=== PATIENT | male | born 1980 | race African-American/Black ===

== ENCOUNTER 2018-01-08 16:43 | Emergency (ER) | payer SELFPAY ==
[~2018-01-08] VITALS: Ht 170.2 cm; Wt 65.8 kg
[2018-01-08 18:43] VITALS: BP 146/81
[2018-01-08] MEDS ORDERED: TETRACAINE HCL 0.5% OPTH(EYE) SOLN 4ML LEFTEYE ONE (18:45)
[2018-01-08] MEDS ORDERED: FLUORESCEIN SOD 1 MG TEST STRIP EACHEYE ONE (18:45)
== END 2018-01-08 19:45 | disposition home or self-care (01) ==
LOC: ER 16:50
DX: S05.02XA Injury of conjunctiva and corneal abrasion without foreign body, left eye, initial encounter (principal); F17.210 Nicotine dependence, cigarettes, uncomplicated; F12.10 Cannabis abuse, uncomplicated; Z88.6 Allergy status to analgesic agent; X58.XXXA Exposure to other specified factors, initial encounter; Y93.89 Activity, other specified; Y99.8 Other external cause status; Y92.89 Other specified places as the place of occurrence of the external cause

== ENCOUNTER 2018-10-06 11:57 | Emergency (ER) | payer MEDICAID ==
[~2018-10-06] VITALS: Ht 170.2 cm; Wt 65.8 kg
[2018-10-06 12:00] VITALS: BP 132/65
[2018-10-06 13:16] LABS: Basophils # (auto) 0.1 uL; Basophils % (auto) 0.8 % (0.0-2.0); Eosinophils # (auto) 0 uL; Eosinophils % (auto) 0.2 % (0.0-7.0); Hemoglobin 14.2 g/dL (13.5-17.5); Lymphocytes % (auto) 12.2 % (10.0-50.0); Mean Corpuscular Hemoglobin 31.6 pg (28.0-32.0); Mean Corpuscular Hgb Conc. 33.9 g/dL (32.0-36.0); Monocytes # (auto) 0.6 uL; Monocytes % (auto) 7.4 % (0.0-12.0); Neutrophils # (auto) 6.7 uL; Neutrophils % (auto) 79.4 % (37.0-80.0); Nucleated Red Blood Cells % 0.1 %; Platelet Count (auto) 356 10^3/uL (140-450); Red Blood Cells 4.51 10^6/uL (4.5-5.90); White Blood Cell 8.4 10^3/uL (4.4-10.8)
[2018-10-06 13:50] LABS: Chloride 99 mmol/L (98-107); Potassium 3.2 mmol/L (3.5-5.1); Sodium 136 mmol/L (136-145)
[2018-10-06 13:52] LABS: Amphetamine Screen, Urine NEGATIVE (NEGATIVE); Barbiturate Scree,Urine NEGATIVE (NEGATIVE); Benzodiazephine Screen, Urine NEGATIVE (NEGATIVE); Cannabinoid Screen, Urine POSITIVE (NEGATIVE); Cocaine Screen, Urine NEGATIVE (NEGATIVE); Opiate Scree,Urine NEGATIVE (NEGATIVE); Phencyclidine Screen, Urine NEGATIVE (NEGATIVE)
[2018-10-06 14:07] LABS: Alanine Aminotransferase 63 U/L (16-61); Albumin 4.5 g/dL (3.4-5.0); Alkaline Phosphatase 82 U/L (45-117); Anion Gap 14 (5-15); Aspartate Aminotransferase 74 U/L (15-37); BUN/Creatinine Ratio 14.6; Bilirubin, Total 1.8 mg/dL (0.2-1.0); Blood Urea Nitrogen 15 mg/dL (7-18); Calcium 8.3 mg/dL (8.5-10.1); Carbon Dioxide 23 mmol/L (21-32); GFR African American 105 mL/min; GFR Non-African American 86 mL/min; Glucose 51 mg/dL (74-106); Magnesium 2.1 mg/dL (1.6-2.6); Total Protein 8.1 g/dL (6.4-8.2)
[2018-10-06] MEDS ORDERED: POTASSIUM CHL 20 Meq TABLET PO ONE (17:00)
== END 2018-10-06 17:24 | disposition left against medical advice (07) ==
LOC: ER 11:57
DX: R53.1 Weakness (principal); E87.6 Hypokalemia; F17.210 Nicotine dependence, cigarettes, uncomplicated; Z88.6 Allergy status to analgesic agent
CPT/HCPCS: 36415; 70450; 71046; 80053; 80307; 83735; 84484; 85025; 93005